=== PATIENT | female | born 1930 | race Caucasian/White ===

== ENCOUNTER 2017-02-18 12:27 | Day surgery (SDC) | payer MEDICARE, BC ==
--- NOTE | 2017-02-18 06:23 | History and Physical Report ---
DATE: 02/17/2017. CHIEF COMPLAINT AND HISTORY OF CHIEF COMPLAINT: This is a patient with a history of intractable lumbar radiculitis. She is here for the implantation of a permanent spinal cord stimulator after a successful trial. Her diagnostic studies show extensive multilevel spondylosis. An implanted peripheral nerve stimulator with generator will be removed. PAST MEDICAL HISTORY: Chronic pulmonary disease, hypertension, cardiac arrhythmia, reflux disease. PAST SURGICAL HISTORY: Gallbladder surgery, thyroid surgery, knee surgery, hysterectomy. EMPLOYMENT STATUS: Retired. MEDICATIONS ON ADMISSION: To be provided. Blood thinners noted. ALLERGIES: Penicillin, nonsteroidal anti-inflammatories. REVIEW OF SYSTEMS: The patient seems appropriate and in no acute distress. The remainder of the systems review shows asthma, hypertension, degenerative arthritis. SOCIAL HISTORY: Noncontributory. FAMILY HISTORY: Thyroid disease, asthma, coronary artery disease. PHYSICAL EXAMINATION: General: Height is 5 feet, weight is 170 pounds. Vital Signs: Unavailable. HEENT: Within normal limits. Lungs: Clear. Heart: Regular rate and rhythm. Abdomen: Nontender. Musculoskeletal: Examination of the musculoskeletal system shows the pain pattern to be in the back and legs bilaterally. Two incisional sites are noted approximating L5, one left and one right, for the peripheral stimulators. An internal generator is noted at the left posterior gluteal margin. All of the incisional sites are intact. Neurologic: Cranial nerves are intact. IMPRESSION: INTRACTABLE LUMBAR RADICULITIS, ICD-10 CODE M54.16 AND M54.17. PLAN: The patient is here for implantation of a permanent spinal cord stimulator after a successful trial. The two peripheral stimulators will be removed. The generator site will be used for the new generator. The procedure will be considered outpatient, although an overnight stay will be evaluated. All of the potential risks, side effects, and complications have been reviewed and discussed including spinal cord injury, nerve root injury, dural puncture, and spinal headache. We will consider an overnight stay, although an outpatient procedure will be evaluated. ADAM AJ D.O. Date & Time JOB NUMBER: [id number] cc: Urbano Bajwa
[~2017-02-18 12:27] MED LIST: ACETAMINOPHEN 1,000 MG/100 ML BTL IV ONE; CLINDAMYCIN 600MG/50ML PREMIX 600 MG/50 ML BAG IVPB ONE; FAMOTIDINE 20MG TABLET PO ONE; MECLIZINE 25 MG TABLET PO ONE; METOCLOPRAMIDE 10 MG TABLET PO ONE
[2017-02-18] MEDS ORDERED: CLINDAMYCIN (PEDIATRIC DOSING) 150 MG/ML VIAL IVPB ONE (14:00)
[2017-02-18] MEDS ORDERED: METOCLOPRAMIDE HCL 10 MG/2 ML VIAL IVP PRN (15:36)
[2017-02-18] MEDS ORDERED: HYDROCODONE/APAP 7.5/325MG TABLET PO PRN ×2 (15:36)
[2017-02-18] MEDS ORDERED: SENNOSIDES/DOCUSATE SODIUM UD CAPSULE PO PRN ×2 (15:36)
[2017-02-18] MEDS ORDERED: DIPHENHYDRAMINE HCL IV 50 MG/ML VIAL IVP PRN ×2 (15:36)
[2017-02-18] MEDS ORDERED: DIPHENHYDRAMINE HCL 25 MG CAPSULE PO PRN ×2 (15:36)
[2017-02-18] MEDS ORDERED: HYDROMORPHONE HCL 2 MG/ML VIAL IM PRN (15:36)
[2017-02-18] MEDS ORDERED: ACETAMINOPHEN 325 MG TAB PO PRN ×2 (15:36)
[2017-02-18] MEDS ORDERED: AL HYDROX/MAG HYDROX 30ML UD PO PRN (15:36)
[2017-02-18] MEDS ORDERED: OXYCODONE/APAP 10MG-325MG TABLET PO PRN ×2 (15:36)
[2017-02-18] MEDS ORDERED: METOCLOPRAMIDE 10 MG TABLET PO PRN (15:36)
[2017-02-18] MEDS ORDERED: TEMAZEPAM 15 MG CAPSULE PO PRN ×2 (15:36)
[2017-02-18] MEDS ORDERED: HYDROMORPHONE HCL 1 MG/ML CPJ IM PRN (15:36)
[2017-02-18] MEDS ORDERED: FUROSEMIDE 20 MG TABLET PO PRN (15:38)
[2017-02-18] MEDS ORDERED: AMITRIPTYLINE 10 MG TAB PO PRN (15:39)
[2017-02-18] MEDS ORDERED: ALBUTEROL HFA 8 GM INHALER INH PRN (15:39)
[2017-02-18] MEDS ORDERED: FENTANYL PF 100MCG/2ML VIAL IV ONE (16:18)
[2017-02-18] MEDS ORDERED: LIDOCAINE 2% MDV (20MG/ML) 20ML VIAL IV ONE (16:18)
[2017-02-18] MEDS ORDERED: PROPOFOL 10 MG/ML VIAL IV ONE (16:18)
[2017-02-18] MEDS ORDERED: *PACU ONLY* KETAMINE HCL 10 MG/ML (20ML) VIAL IV ONE (16:18)
[2017-02-18] MEDS ORDERED: MIDAZOLAM HCL 2MG/2ML VIAL IV ONE (16:18)
[2017-02-18] MEDS ORDERED: CLINDAMYCIN 600MG/50ML PREMIX 600 MG/50 ML BAG IVPB SCH (21:30)
[2017-02-18] MEDS ORDERED: MONTELUKAST SODIUM 10MG TABLET PO SCH (22:00)
[2017-02-18] MEDS ORDERED: 0.9 % SODIUM CHLORIDE 10ML SYR IVP SCH (22:00)
[2017-02-18] MEDS ORDERED: LATANOPROST 0.005% OPTH SOLUTION 2.5ML BOTTLE OPTH SCH (22:00)
[2017-02-19] MEDS ORDERED: LEVOTHYROXINE SODIUM 75 MCG TABLET PO SCH (07:00)
[2017-02-19] MEDS ORDERED: PANTOPRAZOLE SODIUM 40 MG TABLET PO SCH (07:00)
[2017-02-19] MEDS ORDERED: AMLODIPINE BESYLATE 5MG TAB PO SCH (10:00)
--- NOTE | 2017-02-19 16:38 | Operative Note - Ferro ---
DATE OF SURGERY: 02/18/17 PREOPERATIVE DIAGNOSES: 1. LUMBAR RADICULITIS, ICD-10 CODE = M54.16 AND M54.17. 2. PERIPHERAL NERVE STIMULATOR, TWO LEADS, INTERNAL GENERATOR, NONFUNCTIONAL. OPERATION: 1. INCISION, SUBCUTANEOUS DISSECTION, AND REMOVAL OF TWO PERIPHERAL NERVE STIMULATORS IMPLANTED. 2. INCISION, SUBCUTANEOUS DISSECTION, AND REMOVAL OF INTERNAL PULSE GENERATOR FOR PERIPHERAL NERVE STIMULATORS LEFT POSTERIOR GLUTEAL MARGIN. 3. FLUOROSCOPICALLY-GUIDED EPIDURAL ACCESS T12-L1, LEFT OF MIDLINE. CURVED ACCESS EPIMED NEEDLES [id number], PLACEMENT OF SPINAL CORD STIMULATOR LEAD 1, A [employer] OCTAPOLAR MRI COMPATIBLE. 4. FLUOROSCOPICALLY-GUIDED EPIDURAL ACCESS LEFT T11-12 WITH EPIMED CURVED ACCESS [id number], PLACEMENT OF SPINAL CORD STIMULATOR LEAD 2, A [employer] OCTAPOLAR 8 ELECTRODES MRI COMPATIBLE. 5. COMPLEX PROGRAMMING LEAD 1 OVER 20 MINUTES FOLLOWED BY COMPLEX PROGRAMMING LEAD 2 OVER 20 MINUTES. 6. INCISION, SUBCUTANEOUS DISSECTION, AND ANCHORING OF LEAD 1 AND LEAD 2 TO SUPRASPINOUS FASCIA USING A [employer] LOCKING ANCHOR WITH NONABSORBABLE SUTURE, EACH LEAD. 7. REVISION AND ENLARGEMENT OF LEFT POSTERIOR GLUTEAL MARGIN GENERATOR POUCH FOR PLACEMENT OF A [employer] NON-RECHARGEABLE INTERNAL PULSE GENERATOR. 8. TUNNELING BETWEEN LEAD POUCHES. PLACEMENT OF EXTERNAL PORTION LEAD 1 AND LEAD 2 INTO GENERATOR POUCH. EACH LEAD INTERFACED WITH INTERNAL PULSE GENERATOR. 9. PLACEMENT OF GENERATOR POUCH. PLACEMENT OF LEADS INTO POUCH. CLOSURE OF INCISIONS, VICRYL FOR FASCIA, RUNNING SUBCUTICULAR VICRYL FOR SKIN. ALL INCISIONS CLOSED VICRYL FOR FASCIA AND SUBCUTICULAR VICRYL FOR SKIN. DERMABOND CLOSURE OVER ALL INCISIONS. TRANSPORTED TO THE RECOVERY ROOM STABLE SHOWING NO SIDE-EFFECTS FROM THE PROCEDURE OR THE SEDATION. WHEN FULLY AWAKE AND ALERT IN THE RECOVERY ROOM, COMPLEX PROGRAMMING OF THE INTERNAL GENERATOR OVER 20 MINUTES PERFORMED RE-ESTABLISHING STIMULATION AND PAIN CONTROL TO ALL OF THE APPROPRIATE AREAS. THE PATIENT WAS REQUESTING DISCHARGE. SHE WAS TRANSPORTED TO THE FLOOR FOR MONITORING AND WILL BE EVALUATED FOR DISCHARGE IN THE MORNING. SURGEON: ADAM AJ D.O. ANESTHESIA: ANESTHESIA PROVIDER: INDICATION: PROCEDURE: DISCHARGE INSTRUCTIONS: 1. The sites will remain clean and dry although the Dermabond will allow showering. 2. Standard medications resumed including Levaquin, the antibiotic, 500 mg once a day for 14 days. 3. The office will contact the patient in three days to set up an evaluation for the sites in 5-7 days. Until then, her activities should stay low. Limit bend, lift, push, pull. No driving until she is seen in the office to evaluate the sites. All other instructions provided, numbers to contact, problems, given , and at that point she will be prepared for discharge. cc: Dr. Pantoja JOB NUMBER: [id number] MTDD
--- NOTE | 2017-02-19 19:49 | RADIOLOGY REPORT ---
EXAM: SPINE, 1 VIEW HISTORY: PAIN, PROCEDURE. COMPARISON: Thoracic spine 02/18/17 same day. FINDINGS: Stimulator leads overlie the thoracic spine extending cephalad to the T6-7 level. Moderate levoconvex scoliosis of the lumbar spine with multilevel degenerative disc disease. IMPRESSION: STIMULATOR LEADS OVERLIE THE THORACIC SPINE EXTENDING CEPHALAD TO THE T6-7 LEVEL. JOB NUMBER: [id number] MTDD
== END 2017-02-18 18:25 | disposition home or self-care (01) ==
LOC: SUR 12:27 → MEDSURG 15:55 → SUR 18:25
PROVIDERS: ATTEND Pain Medicine Interventional Pain Medicine
DX: T85.191A Other mechanical complication of implanted electronic neurostimulator of peripheral nerve electrode (lead), initial encounter (principal); T85.193A Other mechanical complication of implanted electronic neurostimulator, generator, initial encounter; M54.16 Radiculopathy, lumbar region; M54.17 Radiculopathy, lumbosacral region; I10 Essential (primary) hypertension; E03.9 Hypothyroidism, unspecified; I25.10 Atherosclerotic heart disease of native coronary artery without angina pectoris; Z79.01 Long term (current) use of anticoagulants
CPT/HCPCS: 63650 ×2; 63685; 64585; 64595; 01936; 95972; 72020; J3490; J3010

== ENCOUNTER 2019-04-06 07:41 | Day surgery (SDC) | payer MEDICARE, BC ==
--- NOTE | 2019-04-06 06:56 | History and Physical - Ferro ---
CHIEF COMPLAINT/HISTORY OF CHIEF COMPLAINT: This patient presents with a history of an intractable lumbar radiculopathy. Due to the failure of all therapy, a spinal cord stimulator trial was conducted with the permanent implant performed on 02/18/17. Although the system appeared to be doing quite well over time it began to malfunction. She was given the option to remove or revise and she opted to remove. PAST MEDICAL HISTORY: Chronic pulmonary disease, hypertension, cardiac arrhythmia, and reflux. PAST SURGICAL HISTORY: Gallbladder, thyroid, knee surgery, and hysterectomy. EMPLOYMENT STATUS: Retired. MEDICATIONS ON ADMISSION: List to be provided. ALLERGIES: PENICILLIN AND NONSTEROIDAL ANTIINFLAMMATORIES. FAMILY/PSYCHOSOCIAL HISTORY: Social history - Noncontributory. Family history - Thyroid disease, asthma, and coronary artery disease. SYSTEMS REVIEW: The patient is appropriate in no acute distress. The remainder of the systems review is positive for asthma, hypertension, and degenerative arthritis. PHYSICAL EXAMINATION: Height is 5', weight is 140. No vital signs. HEENT: Within normal limits. LUNGS: Clear. HEART: Rapid and regular. ABDOMEN: Nontender. MUSCULOSKELETAL: Examination of the musculoskeletal system shows the incision for the leads approximating T12. The generator incision at the left posterior gluteal margin is noted. All incisions are intact. NEUROLOGIC: Cranial nerves are intact. The underlying pain pattern is lumbar radiculopathy. IMPRESSION: 1. LUMBAR RADICULOPATHY, ICD-10 CODE M54.16 AND M54.17. 2. SPINAL CORD STIMULATOR AND INTERNAL GENERATOR, NONFUNCTIONAL. PLAN: The patient is here on an outpatient basis for removal of two stimulators and internal generator. The procedure will be considered outpatient, although an overnight stay will be evaluated. JOB NUMBER: [id number] MTDD
[~2019-04-06 07:41] MED LIST changes: -ACETAMINOPHEN 1,000 MG/100 ML BTL IV ONE; +ACETAMINOPHEN 1,000 MG/100 ML BTL IVPB ONE
[2019-04-06] MEDS ORDERED: LIDOCAINE 2% MDV (20MG/ML) 20ML VIAL IV ONE (07:42)
[2019-04-06] MEDS ORDERED: FENTANYL PF 100MCG/2ML VIAL IV ONE (07:42)
[2019-04-06] MEDS ORDERED: PROPOFOL 10 MG/ML VIAL IV ONE (07:42)
[2019-04-06] MEDS ORDERED: RINGERS SOLUTION,LACTATED 1,000 ML IV ONE (08:30)
[2019-04-06] MEDS ORDERED: BUPIVACAINE 0.5% W/EPI MPF 30 ML VIAL SQ ONE (10:41)
[2019-04-06] MEDS ORDERED: Clindamycin 600mg vial 150 MG/ML VIAL IR ONE (10:41)
[2019-04-06] MEDS ORDERED: LIDOCAINE 1% W/EPI 1:100,000 MDV 20 ML VIAL SQ ONE (10:41)
[2019-04-06] MEDS ORDERED: HYDROCODONE/APAP 7.5/325MG TABLET PO ONE (11:34)
--- NOTE | 2019-04-06 14:05 | Operative Note - Ferro ---
DATE OF SURGERY: 04/06/2019 PREOPERATIVE DIAGNOSIS: 1. LUMBAR RADICULOPATHY, ICD-10 CODE M54.16 AND M54.17. 2. SPINAL CORD STIMULATOR TWO LEADS INTERNAL GENERATOR NONFUNCTIONAL. OPERATION: 1. FLUOROSCOPICALLY GUIDED INCISION, SUBCUTANEOUS DISSECTION, AND REMOVAL OF TWO IMPLANTED SPINAL CORD STIMULATORS. 2. INCISION, SUBCUTANEOUS DISSECTION, AND REMOVAL OF IMPLANTED SPINAL CORD STIMULATOR GENERATOR. SURGEON: Yuval Simeon D.O. ANESTHESIA: Local sedation. ANESTHESIA PROVIDER: Jak Matson CRNA INDICATION: This patient presents with history of intractable lumbar radiculopathy. Due to the failure of therapy, a spinal cord stimulator internal generator was performed a number of years previous, although initially working quite well her pain pattern has changed dramatically. She was evaluated and felt to be a candidate for an intraspinal infusion device in light of the failure of the stimulator and the generator. With the intent of moving towards a spinal pump she is here for removal of two leads and internal generator. PROCEDURE: Intravenous line, vital sign monitoring, IV sedation, prepped and draped, sterile technique. Under imaging the epidural interspace approximating T12-L1 infiltrated, incision made, subcutaneous dissection was conducted to the two leads and anchors, the anchors were removed. The leads and all sutures were removed intact. All electrodes are accounted for, two implanted stimulator, eight electrodes each. At the left posterior gluteal margin generator pouch the skin infiltrated, incision made, and subcutaneous dissection was conducted to the generator pouch. The generator was exteriorized. Antibiotic irrigation was performed, Bovie for hemostasis. The incisions were then closed using Vicryl for fascia and robert for skin. Op-Site dressing was placed. She was transported to the Recovery Room stable. No side effects from the procedure or sedation. When fully awake and alert, she was prepared for discharge. DISCHARGE INSTRUCTIONS: 1. The sites are to remain clear and dry. No showering or bathing in any way that would disrupt dressings. If it happens contact the clinic. 2. Standard medications resumed including the antibiotic Levaquin 500 mg once a day for fourteen days. 3. Office to contact the patient in 12-24 hours to set up a time in 7-10 days for us to evaluate the sites and remove the robert. She will take the antibiotic for the next 10-14 days. She will be evaluated in the office. Robert to be removed and incisions will be checked. Until then she is to keep activities controlled. All other instructions were provided. Numbers to contact if problems given. She is provided with a postoperative analgesic [place] for pain control. We will see her in the office. JOB NUMBER: [id number] MTDD
== END 2019-04-06 11:45 | disposition home or self-care (01) ==
LOC: SUR 07:41
PROVIDERS: ATTEND Pain Medicine Interventional Pain Medicine
DX: M54.16 Radiculopathy, lumbar region (principal); M54.17 Radiculopathy, lumbosacral region; I10 Essential (primary) hypertension; K58.9 Irritable bowel syndrome, unspecified; Z79.01 Long term (current) use of anticoagulants; K21.9 Gastro-esophageal reflux disease without esophagitis; H40.9 Unspecified glaucoma; R60.9 Edema, unspecified; J45.909 Unspecified asthma, uncomplicated; I73.9 Peripheral vascular disease, unspecified; G45.9 Transient cerebral ischemic attack, unspecified; F17.210 Nicotine dependence, cigarettes, uncomplicated
CPT/HCPCS: J7120